=== PATIENT | female | born 1995 | race Two or more races ===

== ENCOUNTER 2019-09-18 07:27 | Emergency (ER) | payer MEDICAID, OTHER ==
[~2019-09-18] VITALS: Ht 157.5 cm; Wt 58.1 kg
[2019-09-18 08:55] LABS: Basophils # (auto) 0 uL; Basophils % (auto) 0.1 % (0.0-2.0); Eosinophils # (auto) 0 uL; Eosinophils % (auto) 0.2 % (0.0-7.0); Hematocrit 33.9 % (36.0-46.0); Hemoglobin 11.8 g/dL (12.2-16.2); Lymphocytes # (auto) 1.2 uL; Lymphocytes % (auto) 13.4 % (10.0-50.0); Mean Corpuscular Hemoglobin 31.4 pg (28.0-32.0); Mean Corpuscular Hgb Conc. 34.7 g/dL (32.0-36.0); Mean Corpuscular Volume 90.6 fL (80.0-100.0); Monocytes # (auto) 0.4 uL; Monocytes % (auto) 4.8 % (0.0-12.0); Neutrophils # (auto) 7.1 uL; Neutrophils % (auto) 81.5 % (37.0-80.0); Nucleated Red Blood Cells % 0.1 %; Platelet Count (auto) 157 10^3/uL (140-450); Red Blood Cells 3.75 10^6/uL (4.0-5.20); Red Cell Distribution Width 14.2 % (11.8-14.3); White Blood Cell 8.7 10^3/uL (4.4-10.8)
[2019-09-18 09:18] LABS: Potassium 3.7 mmol/L (3.5-5.1)
[2019-09-18 09:29] LABS: BUN/Creatinine Ratio 14.5; Bilirubin, Total 0.2 mg/dL (0.2-1.0); Calcium 8.7 mg/dL (8.5-10.1)
[2019-09-18] MEDS ORDERED: KETOROLAC TROMETH 30 MG/ML 1ML VIAL IV ONE (09:30)
[2019-09-18] MEDS ORDERED: PROMETHAZINE HCL 25 MG/ML 1ML IV ONE (09:30)
[2019-09-18 09:45] LABS: Urine Bacteria NONE SEEN /hpf (None Seen); Urine Blood Negative /uL (Negative); Urine Specific Gravity 1.009 (1.001-1.035); Urine WBC 1 /hpf (0 - 5)
[2019-09-18 11:23] VITALS: BP 99/48
== END 2019-09-18 11:45 | disposition home or self-care (01) ==
LOC: ER 07:27 → EDBD 07:27 → ER 11:45
DX: O26.892 Other specified pregnancy related conditions, second trimester (principal); N20.9 Urinary calculus, unspecified; K52.9 Noninfective gastroenteritis and colitis, unspecified; Z3A.23 23 weeks gestation of pregnancy
CPT/HCPCS: 36415; 76700; 76805; 80053; 81001; 82150; 83690; 85025; 96374; 96375; 99284; J1885; J2550

== ENCOUNTER 2021-12-18 16:19 | Emergency (ER) | payer MEDICAID, OTHER ==
[~2021-12-18] VITALS: Ht 157.5 cm; Wt 56.2 kg
[2021-12-18 16:28] VITALS: BP 119/89
[2021-12-18] MEDS ORDERED: IOHEXOL 300 MG/ML 100ML BOTTLE IJ ONE (16:35)
== END 2021-12-18 18:42 | disposition home or self-care (01) ==
LOC: ER 16:19
DX: S80.11XA Contusion of right lower leg, initial encounter (principal); S09.90XA Unspecified injury of head, initial encounter; M79.10 Myalgia, unspecified site; D21.9 Benign neoplasm of connective and other soft tissue, unspecified; V89.2XXA Person injured in unspecified motor-vehicle accident, traffic, initial encounter; Y93.89 Activity, other specified; Y92.89 Other specified places as the place of occurrence of the external cause; Y99.8 Other external cause status
CPT/HCPCS: 70450; 73590; 74177; 99285; Q9967

== ENCOUNTER 2022-12-08 17:49 | Emergency (ER) | payer MEDICAID ==
[~2022-12-08] VITALS: Ht 157.5 cm; Wt 54.5 kg
[2022-12-08] MEDS ORDERED: SODIUM CHLORIDE 0.9% 1,000 ML IV ONE (18:45)
[2022-12-08] MEDS ORDERED: ONDANSETRON HCL 4 MG/2 ML VIAL IV ONE (18:45)
[2022-12-08 18:48] LABS: Urine Bacteria NONE SEEN /hpf (None Seen); Urine Blood TRACE /uL (Negative); Urine Mucus FEW (None Seen); Urine Specific Gravity 1.025 (1.001-1.035); Urine WBC 3 /hpf (0 - 5)
[2022-12-08] MEDS ORDERED: ONDA-144 PO (18:53)
[2022-12-08 19:36] LABS: Basophils # (auto) 0 10 ^3/uL (0-0.2); Basophils % (auto) 0.1 % (0.0-2.0); Eosinophils # (auto) 0.1 10 ^3/uL (0-0.8); Hematocrit 39.1 % (36.0-46.0); Hemoglobin 13.5 g/dL (12.2-16.2); Lymphocytes # (auto) 1.3 10 ^3/uL (0.4-5.4); Mean Corpuscular Hemoglobin 31.3 pg (28.0-32.0); Mean Corpuscular Hgb Conc. 34.6 g/dL (32.0-36.0); Mean Corpuscular Volume 90.5 fL (80.0-100.0); Monocytes # (auto) 0.5 10 ^3/uL (0-1.3); Monocytes % (auto) 5.8 % (0.0-12.0); Neutrophils # (auto) 6.7 10 ^3/uL (1.6-8.6); Neutrophils % (auto) 78.1 % (37.0-80.0); Red Blood Cells 4.32 10^6/uL (4.0-5.20); Red Cell Distribution Width 13.2 % (11.8-14.3); White Blood Cell 8.6 10^3/uL (4.4-10.8)
[2022-12-08 19:47] LABS: Albumin 3.7 g/dL (3.4-5.0); BUN/Creatinine Ratio 18.5 (10.0-20.0); Calcium 8.4 mg/dL (8.5-10.1); Potassium 3.9 mmol/L (3.5-5.1)
[2022-12-08 19:50] LABS: Bilirubin, Total 0.5 mg/dL (0.2-1.0); Total Protein 7.2 g/dL (6.4-8.2)
[2022-12-08 21:44] VITALS: BP 106/58
== END 2022-12-08 21:44 | disposition home or self-care (01) ==
LOC: ER 17:49
DX: R42 Dizziness and giddiness (principal); R11.0 Nausea; Z79.899 Other long term (current) drug therapy
CPT/HCPCS: 36415; 80053; 81001; 81025; 82962; 84484; 85025; 96361; 96374; 99283; J2405; J7030

== ENCOUNTER 2023-06-25 10:50 | Emergency (ER) | payer MEDICAID ==
[~2023-06-25] VITALS: Ht 157.5 cm; Wt 57.1 kg
[~2023-06-25 10:50] MED LIST: ONDA-144 PO
[2023-06-25 12:16] VITALS: BP 97/68; PULSE 71; RESP 16; TEMP 97.6; O2SAT 99
[2023-06-25 13:38] LABS: Urine Bacteria NONE SEEN /hpf (None Seen); Urine Blood Negative /uL (Negative); Urine Clarity Clear (Clear); Urine Protein, UAD Negative (Negative); Urine Specific Gravity 1.018 (1.001-1.035); Urine Urobilinogen Normal (Negative); Urine WBC <1 /hpf (0 - 5)
[2023-06-25 13:42] LABS: Urine Color Straw (Yellow)
[2023-06-25 14:35] LABS: Amphetamine Screen, Urine Neg (NEGATIVE); Barbiturate Scree,Urine Neg (NEGATIVE); Benzodiazephine Screen, Urine Neg (NEGATIVE); Cocaine Screen, Urine Neg (NEGATIVE); Opiate Scree,Urine Neg (NEGATIVE); Phencyclidine Screen, Urine Neg (NEGATIVE)
[2023-06-25 14:36] LABS: Cannabinoid Screen, Urine Neg (NEGATIVE)
== END 2023-06-25 14:05 | disposition left against medical advice (07) ==
LOC: ER 10:50
DX: G43.009 Migraine without aura, not intractable, without status migrainosus (principal); Z79.899 Other long term (current) drug therapy; Z32.02 Encounter for pregnancy test, result negative
CPT/HCPCS: 70450; 80307; 81001; 81025

== ENCOUNTER 2023-11-24 20:55 | Emergency (ER) | payer MEDICAID ==
[~2023-11-24] VITALS: Ht 157.5 cm; Wt 56.0 kg
[2023-11-24] MEDS ORDERED: CYCL-837 PO (23:52)
[2023-11-24] MEDS ORDERED: ACET500T58 PO (23:52)
[2023-11-25 00:05] VITALS: BP 104/65; PULSE 106; RESP 15; TEMP 98.2; O2SAT 97
== END 2023-11-25 00:56 | disposition home or self-care (01) ==
LOC: ER 20:55
DX: S39.012A Strain of muscle, fascia and tendon of lower back, initial encounter (principal); S20.219A Contusion of unspecified front wall of thorax, initial encounter; Z79.899 Other long term (current) drug therapy; V43.52XA Car driver injured in collision with other type car in traffic accident, initial encounter; Y93.89 Activity, other specified; Y92.89 Other specified places as the place of occurrence of the external cause; Y99.8 Other external cause status
CPT/HCPCS: 71046; 72100

== ENCOUNTER 2023-12-20 03:56 | Emergency (ER) | payer MEDICAID ==
[~2023-12-20] VITALS: Ht 157.5 cm; Wt 59.9 kg
[~2023-12-20 03:56] MED LIST changes: +ACET500T58 PO; +CYCL-837 PO
[2023-12-20 04:18] VITALS: BP 123/70; PULSE 76; RESP 19; O2SAT 96
[2023-12-20] MEDS ORDERED: PRED20TA2 PO (04:39)
[2023-12-20] MEDS ORDERED: FAMO20TA10 PO (04:39)
[2023-12-20] MEDS ORDERED: DIPH25CA66 PO (04:39)
[2023-12-20] MEDS ORDERED: FAMOTIDINE 20 MG TAB PO ONE (04:45)
[2023-12-20] MEDS ORDERED: DexAMETHasone SOD PHOS 10MG/1ML VIAL INJ IM ONE (04:45)
[2023-12-20] MEDS ORDERED: diphenhdrAMINE HCL 50 MG/1 ML VL IM ONE (04:45)
== END 2023-12-20 05:21 | disposition home or self-care (01) ==
LOC: ER 03:56
DX: S00.86XA Insect bite (nonvenomous) of other part of head, initial encounter (principal); T78.40XA Allergy, unspecified, initial encounter; Z98.51 Tubal ligation status; W57.XXXA Bitten or stung by nonvenomous insect and other nonvenomous arthropods, initial encounter; Y93.89 Activity, other specified; Y92.89 Other specified places as the place of occurrence of the external cause; Y99.8 Other external cause status